=== PATIENT | female | born 1945 | race Caucasian/White ===

== ENCOUNTER → 2016-07-15 07:24 | Outpatient (CLI) | payer MEDICARE, OTHER | END | disposition home or self-care (01) | LOC: D.US 07:24 | DX: R10.9 Unspecified abdominal pain (principal) ==

== ENCOUNTER → 2016-08-05 17:54 | Outpatient (CLI) | payer MEDICARE, OTHER | END | disposition home or self-care (01) | LOC: D.MAMMO 13:15 | DX: Z12.31 Encounter for screening mammogram for malignant neoplasm of breast (principal) ==

== ENCOUNTER 2016-09-02 09:28 | Outpatient (CLI) | payer MEDICARE, OTHER ==
--- NOTE | 2016-09-02 16:01 | NUR ---
PT ARRIEVED TO OPS AND EXPLAINED THE MEDICATION TO HER AND SHE DID NOT WANT A TRANSFUSION SHE THOUGHT SHE WAS GETTING AN INJECTION. SHE STATED THAT SHE WOULD CALL DR BARNEY'S OFFICE AND ASK HIM ABOUT THE INJECTION
== END 2016-09-02 09:35 | disposition home or self-care (01) ==
LOC: D.OPS 09:28
DX: M81.0 Age-related osteoporosis without current pathological fracture (principal); Z53.9 Procedure and treatment not carried out, unspecified reason

== ENCOUNTER → 2017-08-11 17:57 | Outpatient (CLI) | payer MEDICARE, OTHER | END | disposition home or self-care (01) | LOC: D.MAMMO 07-26 13:30 | DX: Z12.31 Encounter for screening mammogram for malignant neoplasm of breast (principal) ==

== ENCOUNTER 2019-02-27 09:00 | Outpatient (CLI) | payer MEDICARE, OTHER | END 2019-02-27 09:30 | disposition home or self-care (01) | LOC: D.MAMMO 09:00 | PROVIDERS: ATTEND Family Medicine | DX: Z12.31 Encounter for screening mammogram for malignant neoplasm of breast (principal) ==